=== PATIENT | male | born 1995 | race American Indian/Alaskan Native ===

== ENCOUNTER 2019-09-14 10:55 | Emergency (ER) | payer BC ==
[2019-09-14 13:01] LABS: Basophils % (Auto) 0.1 % (0.0-1.8); Eosinophils % (Auto) 0.6 % (0.0-4.3); Hematocrit 51.2 % (35.5-45.6); Hemoglobin 16.2 gm/dl (11.8-15.2); Lymphocytes # (Auto) 0.7 K/mm3 (1.2-5.4); Lymphocytes % (Auto) 10.9 % (13.4-35.0); Mean Corpuscular HGB Conc 32 % (32-34); Mean Corpuscular Volume 73 fl (84-94); Monocytes # (Auto) 0.5 K/mm3 (0.0-0.8); Monocytes % (Auto) 7.2 % (0.0-7.3); Platelet Count 389 K/mm3 (140-440); Red Blood Count 6.96 M/mm3 (3.65-5.03); Red Cell Distribution Width 14.5 % (13.2-15.2)
[2019-09-14 13:28] LABS: Albumin 5.3 g/dL (3.9-5)
[2019-09-14] MEDS ORDERED: HYOSCYAMINE SUBL 0.125 MG TAB SL ONE (13:46)
[2019-09-14] MEDS ORDERED: ONDANSETRON 4 MG/2 ML INJ IV ONE (13:46)
[2019-09-14] MEDS ORDERED: SODIUM CHLORIDE 0.9% 1000 ML 1,000 ML IV ONE (13:46)
[2019-09-14 14:00] VITALS: BP 106/65
--- NOTE | 2019-09-14 14:01 | Emergency Department Report ---
ED General Adult HPI - General Chief complaint: Abdominal Pain Stated complaint: DIARRHEA Time Seen by Provider: 09/14/19 12:26 Source: patient Mode of arrival: Ambulatory Limitations: No Limitations - History of Present Illness Initial comments: Patient is a 23-year-old male presents emergency room with complaints of diarrhea that began 2 days ago. He states that he also has associated nausea and had 2 episodes of vomiting. He states that he has some "minor" abdominal cramping. He denies any fever, hematochezia, melena, pus in the stool, hematem esis, urinary symptoms. He denies any sick contacts. He states that he did go to the [facility] 2 days ago and believes he might of accidentally drank some of the water. He has a past medical history of HIV and depression. He states that he has been taking his antivirals, he does not know his CD4 count, he states he does have an infectious disease doctor. He has an allergy to Silvadene. He does not report any cough, chest pain, shortness of breath. - Related Data Previous Rx's Medication Instructions Recorded Last Taken Type Hyoscyamine Subl [Levsin Sl 0.125 0.125 mg SL Q6HR PRN #10 tab 09/14/19 Unknown Rx TAB] Ondansetron [Zofran Odt] 4 mg PO Q8HR PRN #10 tab.rapdis 09/14/19 Unknown Rx Allergies Allergy/AdvReac Type Severity Reaction Status Date / Time silver sulfadiazine Allergy Unknown Verified 09/14/19 11:04 [From Silvadene] ED Review of Systems ROS: Stated complaint: DIARRHEA Other details as noted in HPI Comment: All other systems reviewed and negative ED Past Medical Hx - Past Medical History Previous Medical History?: No - Surgical History Past Surgical History?: No - Social History Smoking Status: Former Smoker Substance Use Type: Alcohol - Medications Home Medications: Home Medications Medication Instructions Recorded Confirmed Last Taken Type Hyoscyamine Subl [Levsin Sl 0.125 0.125 mg SL Q6HR PRN #10 tab 09/14/19 Unknown Rx TAB] Ondansetron [Zofran Odt] 4 mg PO Q8HR PRN #10 tab.rapdis 09/14/19 Unknown Rx ED Physical Exam - General Limitations: No Limitations General appearance: alert, in no apparent distress - Head Head exam: Present: atraumatic, normocephalic - Eye Eye exam: Present: normal appearance - ENT ENT exam: Present: mucous membranes dry - Respiratory Respiratory exam: Present: normal lung sounds bilaterally. Absent: respiratory distress, wheezes, rales, rhonchi, stridor, chest wall tenderness, accessory muscle use, decreased breath sounds, prolonged expiratory - Cardiovascular Cardiovascular Exam: Present: regular rate, normal rhythm, normal heart sounds. Absent: systolic murmur, diastolic murmur, rubs, gallop - GI/Abdominal GI/Abdominal exam: Present: soft, normal bowel sounds. Absent: distended, tenderness, guarding, rebound, rigid - Neurological Exam Neurological exam: Present: alert, oriented X3 - Psychiatric Psychiatric exam: Present: normal affect, normal mood - Skin Skin exam: Present: warm, dry, intact ED Course Vital Signs 09/14/19 11:06 Temperature 98.3 F Pulse Rate 106 H Respiratory 19 Rate Blood Pressure 106/65 O2 Sat by Pulse 100 Oximetry ED Medical Decision Making - Lab Data Result diagrams: 09/14/19 12:19 09/14/19 12:19 Lab Results 09/14/19 09/14/19 Range/Units 12:19 12:19 WBC 6.8 (4.5-11.0) K/mm3 RBC 6.96 H (3.65-5.03) M/mm3 Hgb 16.2 H (11.8-15.2) gm/dl Hct 51.2 H (35.5-45.6) % MCV 73 L (84-94) fl MCH 23 L (28-32) pg MCHC 32 (32-34) % RDW 14.5 (13.2-15.2) % Plt Count 389 (140-440) K/mm3 Lymph % (Auto) 10.9 L (13.4-35.0) % [place] % (Auto) 7.2 (0.0-7.3) % Eos % (Auto) 0.6 (0.0-4.3) % Baso % (Auto) 0.1 (0.0-1.8) % Lymph # 0.7 L (1.2-5.4) K/mm3 [place] # 0.5 (0.0-0.8) K/mm3 Eos # 0.0 (0.0-0.4) K/mm3 Baso # 0.0 (0.0-0.1) K/mm3 Seg Neutrophils % 81.2 H (40.0-70.0) % Seg Neutrophils # 5.6 (1.8-7.7) K/mm3 Sodium 137 (137-145) mmol/L Potassium 4.2 (3.6-5.0) mmol/L Chloride 97.7 L (98-107) mmol/L Carbon Dioxide 21 L (22-30) mmol/L Anion Gap 23 mmol/L BUN 25 H (9-20) mg/dL Creatinine 1.6 H (0.8-1.5) mg/dL Estimated GFR 53 ml/min BUN/Creatinine Ratio 16 % Glucose 97 (75-100) mg/dL Calcium 10.0 (8.4-10.2) mg/dL Total Bilirubin 0.50 (0.1-1.2) mg/dL AST 59 H (5-40) units/L ALT 41 (7-56) units/L Alkaline Phosphatase 87 (35-129) units/L Total Protein 9.6 H (6.3-8.2) g/dL Albumin 5.3 H (3.9-5) g/dL Albumin/Globulin Ratio 1.2 % Lipase 15 (13-60) units/L - Medical Decision Making Patient is a 23-year-old male presents emergency room with complaints of diarrhea that began 2 days ago. He states that he also has associated nausea and had 2 episodes of vomiting. He states that he has some "minor" abdominal cramping. He denies any fever, hematochezia, melena, pus in the stool, hematemesis, urinary symptoms. He denies any sick contacts. He states that he did go to the [place] 2 days ago and believes he might of accidentally drank some of the water. He has a past medical history of HIV and depression. He states that he has been taking his antivirals, he does not know his CD4 count, he states he does have an infectious disease doctor. He has an allergy to Silvadene. He does not report any cough, chest pain, shortness of breath. Initial vitals with mild tachycardia, on auscultation heart rate has normalized. No abdominal tenderness on palpation, no guarding, no rebound, normal bowel sounds. No leukocytosis. Labs show evidence of dehydration and very mild MYLENE likely due to volume depletion, mild elevation in AST other LFTs are normal. Patient given 1 L IV fluids, Zofran, Levsin and symptoms improved. Patient was able to tolerate p.o. intake without difficulty. Symptoms most likely associated with gastroenteritis, do not suspect an acute infectious intra-abdominal pathology. Patient given prescription for Zofran and Levsin. Advised patient Please take medication as prescribed. Please increase your fluid intake over the next several days. Eat a bland diet and first began with liquids and then slowly advance her diet as tolerated. Avoid anything greasy or sugary. Please follow-up with your primary care doctor. Please follow-up with your infectious disease doctor. Return to the emergency room immediately for any new or worsening symptoms. Avoid any NSAIDs such as aspirin and ibuprofen, avoid alcohol use. Discussed in detail with patient strict return precautions - Differential Diagnosis Gastroenteritis, colitis, gastritis, pancreatitis, cholecystitis, viral Critical care attestation.: If time is entered above; I have spent that time in minutes in the direct care of this critically ill patient, excluding procedure time. ED Disposition Clinical Impression: Nausea vomiting and diarrhea, Dehydration Disposition: DC-01 TO HOME OR SELFCARE Is pt being admited?: No Does the pt Need Aspirin: No Condition: Stable Instructions: Gastroenteritis (ED) Additional Instructions: Please take medication as prescribed. Please increase your fluid intake over the next several days. Eat a bland diet and first began with liquids and then slowly advance her diet as tolerated. Avoid anything greasy or sugary. Please follow-up with your primary care doctor. Please follow-up with your infectious disease doctor. Return to the emergency room immediately for any new or worsening symptoms. Avoid any NSAIDs such as aspirin and ibuprofen, avoid alcohol use. Prescriptions: Hyoscyamine Subl [Levsin Sl 0.125 TAB] 0.125 mg SL Q6HR PRN #10 tab PRN Reason: abdominal cramping/diarrhea Ondansetron [Zofran Odt] 4 mg PO Q8HR PRN #10 tab.rapdis PRN Reason: Nausea And Vomiting Referrals: ALEAH HERNANDEZ MD [Staff Physician] - 3-5 Days [facility] [Provider Group] - 3-5 Days your, infectious disease doctor [Other] - 3-5 Days Time of Disposition: 15:48 Print Language: BURUN[place]
== END 2019-09-14 16:07 | disposition home or self-care (01) ==
LOC: ED 10:55
DX: E86.0 Dehydration (principal); R19.7 Diarrhea, unspecified; R11.2 Nausea with vomiting, unspecified; Z79.899 Other long term (current) drug therapy; Z87.891 Personal history of nicotine dependence; Z88.8 Allergy status to other drugs, medicaments and biological substances
CPT/HCPCS: 36415; 80053; 83690; 85025; 96361; 96374; 99283; J2405; J7030